=== PATIENT | female | born 1960 | race Caucasian/White ===

== ENCOUNTER 2020-03-03 12:26 | Outpatient (CLI) | payer OTHER, SELFPAY ==
--- NOTE | ~2020-03-03 | XR_ITS ---
XR shoulder RT min 2V DATE: 03/03/2020 12:55 INDICATION: Right shoulder pain. No injury. TECHNIQUE: 4 views COMPARISON: None FINDINGS: No fracture or dislocation, periosteal reaction or bone destruction or abnormal soft tissue calcification. There is mild to moderate osteopenia. IMPRESSION: Mild to moderate osteopenia No fracture or dislocation or abnormal right shoulder soft tissue calcification Reviewed, dictated and finalized at location A.
== END 2020-03-03 12:27 | disposition home or self-care (01) ==
LOC: ANHIMG 12:35
PROVIDERS: PCP Family Medicine; Visit Provider Family Medicine
DX: M25.511 Pain in right shoulder (principal); M85.811 Other specified disorders of bone density and structure, right shoulder
CPT/HCPCS: 73030

== ENCOUNTER 2020-03-15 07:57 | Outpatient (CLI) | payer OTHER, SELFPAY ==
--- NOTE | ~2020-03-15 | DEXA_ITS ---
Bone Density Report Name: Carolee Du Age: 59 Sex: Female Ethnicity: White Date of : 1960 Indication: postmenopausal; height loss; hysterectomy; Referring Provider: MELINDA DENTON Study: Bone densitometry was performed. Exam Date: March 15, 2020 Accession number: [id number] Bone Density: Region BMD T-score Z-score Classification AP Spine (L1-L4) 0.792 -2.3 -0.8 Osteopenia Femoral Neck (Left) 0.693 -1.4 0.0 Osteopenia Total Hip (Left) 0.759 -1.5 -0.5 Osteopenia Total Hip Bilateral Avg 0.762 -1.5 -0.5 Osteopenia Femoral Neck (Right) 0.638 -1.9 -0.5 Osteopenia Total Hip (Right) 0.764 -1.5 -0.4 Osteopenia World Health Organization criteria for BMD impression classify patients as: Normal (T-score at or above -1.0), Osteopenia (T-score between -1.0 and -2.5), or Osteoporosis (T-score at or below -2.5). 10-year Fracture Risk(1): Major Osteoporotic Fracture 9.0% Hip Fracture 1.8% Reported Risk Factors: [place] (), Neck BMD=0.638, BMI=21.9, smoking (1) FRAX(R) Version 3.08. Fracture probability calculated for an untreated patient. Fracture probability may be lower if the patient has received treatment. Clinical Information Provided by Patient: Smokes Has used the following medications: Vitamin D, Calcium Has the following medical conditions: Hysterectomy Patient maximum height was 68.5 Menopause Age: 43 Onset of menses at age 12 Number of children 2 Impression: The patient has low bone mass, based on the Total Spine T-score. The patient has an estimated ten-year risk of hip fracture of 1.8% and an estimated ten-year risk of major fracture of 9%, based on the WHO FRAX algorithm. The patient has risk factors, including: smoking. Discussion: BONE DENSITY IS LOW AT ONE OR MORE SKELETAL SITES. This patient's lowest T-score is low at one or more skeletal sites. It meets the World Health Organization's (WHO) criteria for ?low bone mass? (T-score between -1.0 and -2.5). The patient's 10-year risk of fracture as calculated by FRAX is less than the threshold where pharmacological therapy is recommended by the National Osteoporosis Foundation (NOF). However, all treatment decisions require clinical judgment and consideration of individual patient factors, including patient preferences, comorbidities, previous drug use, risk factors not captured in the FRAX model (e.g., frailty, falls, vitamin D deficiency, increased bone turnover, interval significant decline in bone density) and possible under or overestimation of fracture risk by FRAX. The patient should follow a healthful lifestyle (good nutrition with adequate calcium and vitamin D, and appropriate weight-bearing exercise). Follow-Up: Consider repeating this study in 2 to 3 years to reassess this patient's status, or sooner if there is some new
== END 2020-03-15 07:58 | disposition home or self-care (01) ==
LOC: ANHIMG 07:58
PROVIDERS: PCP Family Medicine; Visit Provider Family Medicine
DX: M85.89 Other specified disorders of bone density and structure, multiple sites (principal)
CPT/HCPCS: 77080

== ENCOUNTER → 2021-01-09 14:07 | Outpatient (CLI) | payer OTHER, SELFPAY ==
--- NOTE | ~2021-01-09 | MM_ITS ---
EXAMINATION: MM screening [facility] BI w celia HISTORY: Screening mammogram TECHNIQUE: Craniocaudal and mediolateral oblique 3-D tomosynthesis images were obtained and synthetic 2-D images were generated. CAD analysis was submitted and interpreted. COMPARISON: 09/19/2014, 09/06/2009 BREAST PARENCHYMAL COMPOSITION: The breasts are extremely dense, which lowers the sensitivity of mamm ography. FINDINGS: There is no evidence of suspicious mass, calcification, or architectural distortion to sugg est malignancy in either breast. There has been no suspicious interval change. IMPRESSION: 1. No mammographic evidence of malignancy. 2. Recommend routine screening mammography in one year. BI-RADS Category 1: Negative Reviewed, dictated and finalized at location A.
== END ==
PROVIDERS: Visit Provider Advanced Practice Midwife
DX: Z12.31 Encounter for screening mammogram for malignant neoplasm of breast (principal)
CPT/HCPCS: 77063; 77067

== ENCOUNTER → 2022-02-22 14:48 | Outpatient (CLI) | payer BC, SELFPAY ==
--- NOTE | ~2022-02-22 | MM_ITS ---
EXAMINATION: MM screening [facility] BI w celia HISTORY: Screening TECHNIQUE: Craniocaudal and mediolateral oblique 3-D tomosynthesis images were obtained and synthetic 2-D images were generated. CAD analysis was submitted and interpreted. COMPARISON: Comparison to multiple prior studies sequentially, with oldest reviewed study dated 01/09. BREAST PARENCHYMAL COMPOSITION: The breasts are extremely dense, which lowers the sensitivity of mamm ography FINDINGS: There is a developing asymmetry lateral to the nipple on the right cc view. There are developing asym metries in the upper outer quadrant of the left breast. There are stable benign-appearing breast calc ifications. IMPRESSION: 1. Developing bilateral breast asymmetries. 2. Additional mammographic views and possible breast ultrasound are recommended. BI-RADS Category 0: Incomplete: Needs additional imaging evaluation. Reviewed, dictated and finalized at location A. IMPRESSION: 1. Developing bilateral breast asymmetries. 2. Additional mammographic views and possible breast ultrasound are recommended . BI-RADS Category 0: Incomplete: Needs additional imaging evaluation.
== END ==
PROVIDERS: PCP Student in an Organized Health Care Education/Training Program; Visit Provider Student in an Organized Health Care Education/Training Program
DX: Z12.31 Encounter for screening mammogram for malignant neoplasm of breast (principal); R92.8 Other abnormal and inconclusive findings on diagnostic imaging of breast
CPT/HCPCS: 77063; 77067

== ENCOUNTER → 2022-03-25 08:05 | Outpatient (CLI) | payer BC, SELFPAY ==
--- NOTE | ~2022-03-25 | MMUS_ITS ---
EXAMINATION: MM diagnostic [facility] BI w celia, US breast BI complete HISTORY: Follow-up breast asymmetries TECHNIQUE: Additional 3-D tomosynthesis images of the breasts were performed and synthetic 2-D images were generated. CAD analysis was submitted and interpreted. High resolution complete bilateral breas t ultrasound was performed. COMPARISON: 09/19/2014 BREAST PARENCHYMAL COMPOSITION: The breasts are extremely dense, which lowers the sensitivity of mamm ography FINDINGS: MAMMOGRAPHIC FINDINGS: There are no suspicious masses, calcifications or architectural distortion in either breast to sugges t malignancy. ULTRASOUND: Complete bilateral US of all 4 quadrants of the breasts and retroareolar region was reviewed. Right breast: At 9:00, 6 cm from the nipple there is an 8 mm lymph node. At 10:00, 4 cm from the nipp le there is an oval hypoechoic mass measuring 6 x 4 x 8 mm without posterior shadowing or internal va scularity. Parallel orientation. Left breast: At 2:00, 4 cm from the nipple there is a 4 mm cyst. No suspicious masses in the left jennifer ast to suggest malignancy. IMPRESSION: 1. Probable benign right breast mass at 10:00, 4 cm from the nipple. No evidence for malignancy in th e left breast. 2. Recommend 6 month follow-up limited right breast ultrasound BI-RADS category 3, probably benign findings. Reviewed, dictated and finalized at location A. IMPRESSION: 1. Probable benign right breast mass at 10:00, 4 cm from the nipple. No evidenc e for malignancy in the left breast. 2. Recommend 6 month follow-up limited right breast ultrasound BI-RADS category 3, probably benign findings.
== END ==
PROVIDERS: PCP Student in an Organized Health Care Education/Training Program; Visit Provider Student in an Organized Health Care Education/Training Program
DX: R92.8 Other abnormal and inconclusive findings on diagnostic imaging of breast (principal); N64.89 Other specified disorders of breast; N60.02 Solitary cyst of left breast; N63.14 Unspecified lump in the right breast, lower inner quadrant
CPT/HCPCS: 76641; 77062; 77066; G0279

== ENCOUNTER → 2022-07-24 10:16 | Outpatient (CLI) | payer BC, SELFPAY ==
--- NOTE | ~2022-07-24 | CT_ITS ---
EXAMINATION: CT lung screening DATE: 07/24/2022 11:18 INDICATION: Nicotine dependence, cigarettes, uncomplicated TECHNIQUE: Computed tomography (CT) of the chest was performed without intravenous contrast. Addition al 3D reconstructions utilizing coronal maximum intensity projection (MIP) were performed. Automated exposure control and iterative reconstruction technique were employed. The dose-length product was 62 .23 mGy-cm. COMPARISON: None FINDINGS: Mild biapical pleural-parenchymal scarring with minimal calcific lesion on the right. Couple tiny lawson cified nodules in the left lower lobe consistent with old granulomatous disease. Additional mild line ar discoid atelectasis at the anterior segment of the right upper lobe. No suspicious pulmonary nodul es, pneumonia, pulmonary edema or pleural effusion. Heart size is normal. No pericardial effusion. Th oracic aorta is normal in caliber. No pathologically enlarged thoracic lymphadenopathy. Small sliding -type hiatal hernia. Visualized upper abdomen is unremarkable. Mild thoracic spondylosis. IMPRESSION: 1. Lung-RADS category 1: Negative. Continue annual screening with noncontrast low-dose chest CT in 12 months. 2. Small sliding-type hiatal hernia. Reviewed, dictated and finalized at location B. IMPRESSION: 1. Lung-RADS category 1: Negative. Continue annual screening with noncontrast l ow-dose chest CT in 12 months. 2. Small sliding-type hiatal hernia.
--- NOTE | ~2022-07-24 | US_ITS ---
US breast RT limited 07/24/2022 11:17 Indication: Follow-up right breast mass at 10:00. Procedure: High-resolution Limited ultrasound of the right breast Comparison: Ultrasound dated 03/25/2022 Findings: At 10:00, 4 cm from the nipple there is an oval circumscribed hypoechoic mass measuring 7 x 4 x 7 mm. There is parallel orientation, no posterior features and no internal vascularity, unchange d from prior examination. Impression: 1: Stable benign-appearing right breast mass, located at 10:00, 4 cm from the nipple. BI-RADS CATEGORY 3-PROBABLY BENIGN FINDING RECOMMENDATION: Six-month follow-up diagnostic bilateral mammogram and Limited left breast ultrasound Reviewed, dictated and finalized at location A. Impression: 1: Stable benign-appearing right breast mass, located at 10:00, 4 cm from the n ipple. BI-RADS CATEGORY 3-PROBABLY BENIGN FINDING RECOMMENDATION: Six-month follow-up diagnostic bilateral mammogram and Limited left breast ultrasound
== END ==
PROVIDERS: PCP Student in an Organized Health Care Education/Training Program; Visit Provider Student in an Organized Health Care Education/Training Program
DX: Z12.2 Encounter for screening for malignant neoplasm of respiratory organs (principal); F17.210 Nicotine dependence, cigarettes, uncomplicated; N63.11 Unspecified lump in the right breast, upper outer quadrant; N64.89 Other specified disorders of breast
CPT/HCPCS: 71271; 76642

== ENCOUNTER → 2023-01-22 07:43 | Outpatient (CLI) | payer BC, SELFPAY ==
--- NOTE | ~2023-01-22 | MMUS_ITS ---
EXAMINATION: MM diagnostic [facility] BI w celia, US breast BI complete HISTORY: Six-month follow-up of reported stable benign-appearing 10:00 right breast mass 4 cm from ni pple TECHNIQUE: Full field and spot 3-D tomosynthesis images of both breasts were performed and synthetic 2-D images were generated. CAD analysis was submitted and interpreted. High resolution complete bilat eral breast ultrasound examination including all 4 quadrants and subareolar areas was performed. COMPARISON: 07/24/2022 Limited right breast ultrasound 03/25/2022 diagnostic bilateral mammogram and bilateral complete breast ultrasound 02/22/2022, 01/09/2021 bilateral screening mammogram examinations BREAST PARENCHYMAL COMPOSITION: The breasts are extremely dense, which lowers the sensitivity of mamm ography. FINDINGS: MAMMOGRAPHIC FINDINGS: Occasional bilateral benign breast calcifications. No suspicious mass or architectural distortion, malignant calcification, skin thickening or retractio n or significant new or developing density is detected. ULTRASOUND: Right breast: 9:00 4 cm from nipple: Benign-appearing approximately 6.5 x 4.4 x 7.5 mm lymph node 10:00 4 cm from nipple: Approximately 4 x 6 x 8 mm parallel circumscribed hypoechoic lesion without i nternal vascularity or posterior shadowing, stable since 03/25/2022. Left breast: 3:00 5 cm from nipple: Parallel circumscribed sonolucency measuring approximately 3 x 5 x 4.8 mm, wit h through transmission, likely a small cyst 4:00 2 cm from nipple: Parallel circumscribed 2.4 x 5.3 mm hypoechoic lesion without internal vascula rity or posterior shadowing, benign in appearance IMPRESSION: 1. Benign findings 2. Routine annual mammographic screening is recommended BI-RADS Category 2: Benign finding(s). Reviewed, dictated and finalized at location A. IMPRESSION: 1. Benign findings 2. Routine annual mammographic screening is recommended BI-RADS Category 2: Benign finding(s).
== END ==
PROVIDERS: PCP Student in an Organized Health Care Education/Training Program; Visit Provider Student in an Organized Health Care Education/Training Program
DX: R92.8 Other abnormal and inconclusive findings on diagnostic imaging of breast (principal)
CPT/HCPCS: 76641; 77062; 77066; G0279

== ENCOUNTER → 2023-10-27 09:41 | Outpatient (CLI) | payer BC, SELFPAY ==
--- NOTE | ~2023-10-27 | CT_ITS ---
CT Scan of the Chest without Contrast: Clinical Indication: Lung cancer screening, personal history of nicotine dependence Technique: Contiguous sections were acquired throughout the chest without intravenous contrast. Dose reduction technique was used on this scan by utilizing automated exposure control and iterative recon struction technique. The dose-length product (DLP) was 67.14 mGy-cm. COMPARISON: 07/24/2022 Findings: There is no evidence of any significant mediastinal, hilar or axillary lymphadenopathy. The mediastin al soft tissues appear normal. There is no evidence of pleural or pericardial effusion. The lungs are clear. No pulmonary nodules or infiltrates are noted. Images through the upper abdomen reveal no abnormalities. Impression: Lung RADS 1: Negative. 12 month follow-up screening CT advised. Reviewed, dictated and finalized at location . GRADER OPERATOR Impression: Lung RADS 1: Negative. 12 month follow-up screening CT advised.
== END ==
PROVIDERS: PCP Student in an Organized Health Care Education/Training Program; Visit Provider Student in an Organized Health Care Education/Training Program
DX: Z12.2 Encounter for screening for malignant neoplasm of respiratory organs (principal); F17.210 Nicotine dependence, cigarettes, uncomplicated
CPT/HCPCS: 71271

== ENCOUNTER 2023-11-27 00:34 | Day surgery (SDC) | payer BC, SELFPAY ==
[2023-11-04 11:48] VITALS: BMI 24.5
--- NOTE | 2023-11-26 16:47 | PM.HPGS ---
History of Present Illness History of Present Illness Consent: Risks, benefits, and alternatives have been discussed and questions answered. Patient agrees to proceed with procedure. Chief complaint: neoplasm screening Narrative: Carolee Du is a 63 year old female referred for colon cancer screening. Her last colonoscopy was 10 years ago. Review of Systems Review of Systems: All systems reviewed & are unremarkable except as noted in HPI and below PMFSH Social History Social History Smoking packs per day: 0.5 Smoking cigarettes per day: 10.0 Years smoked: 35 Smoking pack-years: 17.50 Smoking status: Former smoker Tobacco type: cigarettes Alcohol intake: current Drinks per week: 5 Alcohol use details: On the weekends Substance use type: does not use Living arrangements: other Additional living arrangements comments: with sp Meds Home Medications and Allergies Home Medications Medication Instructions Recorded Confirmed Type aspirin 81 mg tablet 81 mg PO DAILY 11/04/23 11/27/23 History simvastatin 40 mg tablet 40 mg PO DAILY 11/04/23 11/27/23 History Allergies Allergy/AdvReac Type Severity Reaction Status Date / Time No Known Allergies Allergy Verified 11/27/23 09:46 Exam Const: General: alert Orientation/consciousness: patient oriented x3 Resp: Auscultation: clear to auscultation bilaterally Cardio: Rhythm: regular rhythm GI: GI Palp: Yes Soft to palpation and No Tenderness to palpation present (GI) Neuro: General: patient oriented x3 Assessment and Plan Assessment and plan (1) Colon cancer screening: Code(s): Z12.11 - Encounter for screening for malignant neoplasm of colon Status: Acute Assessment and Plan: Colonoscopy with possible biopsy or polypectomy or cautery or injection of substances.
[2023-11-27 09:47] VITALS: BP 123/75; PULSE 96; RESP 16; TEMP 36.1; O2SAT 100
[2023-11-27] MEDS: LACTATED RINGERS 1,000 ML 150 ML IV CONT (09:49)
--- NOTE | 2023-11-27 10:29 | P.PNAN_ITS ---
Anes - Initial Pre Proc Eval Procedure: Operation Date: 11/27/23 11:00 Proposed Procedures p Screening Colonoscopy - Darvin Medrano MD Date/Time: 11/27/23 10:29 Surgeon: Darvin Medrano MD Pre Op Diagnosis: neoplasm screening Patient Data Age: 63 Gender: F Height: 1.73 m Weight: 71.2 kg Last Vital Signs Temp 96.9 F L 11/27/23 09:47 Pulse 96 11/27/23 09:47 Resp 16 11/27/23 09:47 BP 123/75 11/27/23 09:47 Pulse Ox 100 11/27/23 09:47 O2 Del Method Room Air 11/27/23 09:47 Allergies Allergy/AdvReac Type Severity Reaction Status Date / Time No Known Allergies Allergy Verified 11/27/23 09:46 Home Medications Medication Instructions Recorded Confirmed Type aspirin 81 mg tablet 81 mg PO DAILY 11/04/23 11/27/23 History simvastatin 40 mg tablet 40 mg PO DAILY 11/04/23 11/27/23 History Patient hx anesthesia problems: none Family hx anesthesia problems: none Results Review: All pre-operative results and documents have been reviewed as part of the pre- operative evaluation. [facility] Social History Social History Smoking packs per day: 0.5 Smoking cigarettes per day: 10.0 Years smoked: 35 Smoking pack-years: 17.50 Smoking status: Former smoker Tobacco type: cigarettes Alcohol intake: current Drinks per week: 5 Alcohol use details: On the weekends Substance use type: does not use Living arrangements: other Additional living arrangements comments: with sp Anes - Eval Final PreProcedure Day of Procedure 11/27/23 10:29 Patient weight: normal Heart: regular rate and rhythm Lungs: clear to auscultation Airway: Mallampati scale class II Neurological: alert and oriented Last oral intake: >/= 8 hours ASA classification: II Emergent: no Anesthetic plan: proceed Anesthesia type and monitoring: general GIVS and standard monitoring Results Review: All pre-operative results and documents have been reviewed as part of the pre- operative evaluation. Informed Consent: The patient's anesthetic plan and its attendant risks and benefits were discussed with the patient/family/POA. Questions were solicited and answers provided to the satisfaction of the patient/family/POA.
[2023-11-27 11:11] VITALS: BP 130/63; PULSE 79; RESP 20; O2SAT 97
[2023-11-27 11:21] VITALS: BP 148/65; PULSE 68; RESP 22; O2SAT 98
[2023-11-27 11:31] VITALS: BP 167/64; PULSE 66; RESP 18; O2SAT 98
== END 2023-11-27 11:39 | disposition home or self-care (01) ==
PROVIDERS: PCP Student in an Organized Health Care Education/Training Program; Visit Provider Internal Medicine Gastroenterology
PROC: 0DJD8ZZ Inspection of Lower Intestinal Tract, Via Natural or Artificial Opening Endoscopic (ICD-10-PCS; CPT 45378; principal; 2023-11-27 11:00)
DX: Z12.11 Encounter for screening for malignant neoplasm of colon (principal); K62.1 Rectal polyp; K64.8 Other hemorrhoids; K57.30 Diverticulosis of large intestine without perforation or abscess without bleeding; Z79.82 Long term (current) use of aspirin; Z87.891 Personal history of nicotine dependence
CPT/HCPCS: 45380; 88305; J2704; J7120

== ENCOUNTER 2024-03-15 12:53 | Outpatient (CLI) | payer BC, SELFPAY ==
--- NOTE | ~2024-03-15 | DEXA_ITS ---
Bone Density Report Name: SHAUN SALES Age: 63 Sex: Female Ethnicity: White Date of : 1960 Indication: osteopenia; height loss; hysterectomy; Referring Provider: Nisha, Baldev Study: Bone densitometry was performed. Exam Date: March 15, 2024 Accession number: [id number] Bone Density: Region BMD T-score Z-score Classification AP Spine (L1-L4) 0.836 -1.9 -0.1 Osteopenia Femoral Neck (Left) 0.677 -1.5 0.0 Osteopenia Total Hip (Left) 0.756 -1.5 -0.3 Osteopenia Femoral Neck (Right) 0.600 -2.2 -0.7 Osteopenia Total Hip (Right) 0.767 -1.4 -0.2 Osteopenia Total Hip Mean 0.762 -1.5 -0.3 Osteopenia World Health Organization criteria for BMD impression classify patients as: Normal (T-score at or above -1.0), Osteopenia (T-score between -1.0 and -2.5), or Osteoporosis (T-score at or below -2.5). 10-year Fracture Risk(1): Major Osteoporotic Fracture 12% Hip Fracture 2.0% Reported Risk Factors: [place] (), Neck BMD=0.600, BMI=25.1 (1) FRAX(R) Version 3.08. Fracture probability calculated for an untreated patient. Fracture probability may be lower if the patient has received treatment. Previous Exams: Region Exam Age BMD T-score BMD Change BMD Change Date g/cm2 vs Baseline vs Previous AP Spine(L1-L4) 03/15/2024 63 0.836 -1.9 -0.043* -0.043* 09/19/2014 54 0.880 -1.5 Total Hip(Left) 03/15/2024 63 0.756 -1.5 -0.037* -0.037* 09/19/2014 54 0.792 -1.2 Total Hip(Right) 03/15/2024 63 0.767 -1.4 -0.039* -0.039* 09/19/2014 54 0.806 -1.1 *Denotes significance at 95% confidence level, LSC for AP Spine = 0.022 g/cm2, LSC for Total Hip = 0.027 g/cm2 Clinical Information Provided by Patient: Has used the following medications: Vitamin D, Calcium, MTV Has the following medical conditions: Hysterectomy Patient maximum height was 69 Menopause Age: 43 No regular weight bearing exercise Drinks caffeinated beverages Onset of menses at age 10 Number of children 2 Impression: The patient has low bone mass, based on the Right Femoral Neck T-score. The patient has an estimated ten-year risk of hip fracture of 2% and an estimated ten-year risk of major fracture of 12%, based on the WHO FRAX algorithm. The BMD for the AP Spine(L1-L4) decreased, changing by -0.043 since the last DXA exam. The BMD for the Total Hip(Left) decreased, changing by -0.037 since the last DXA exam. The BMD for the Total Hip(Right) decreased, changing by -0.039 since the last DXA exam. Dis
== END 2024-03-15 12:54 ==
LOC: MICIMG 12:56
PROVIDERS: PCP Student in an Organized Health Care Education/Training Program; Visit Provider Student in an Organized Health Care Education/Training Program
DX: M85.89 Other specified disorders of bone density and structure, multiple sites (principal); Z78.0 Asymptomatic menopausal state; Z12.31 Encounter for screening mammogram for malignant neoplasm of breast
CPT/HCPCS: 77080

== ENCOUNTER 2025-01-14 08:13 | Outpatient (CLI) | payer BC, SELFPAY ==
--- NOTE | ~2025-01-14 | CT_ITS ---
CT Scan of the Chest without Contrast: Clinical Indication: Lung cancer screening, nicotine dependence Technique: Contiguous sections were acquired throughout the chest without intravenous contrast. Dose reduction technique was used on this scan by utilizing automated exposure control and iterative recon struction technique. The dose-length product (DLP) was 62.63 mGy-cm. COMPARISON: 10/27/2023 Findings: There is no evidence of any significant mediastinal, hilar or axillary lymphadenopathy. Centimeter me asures 4 cm in diameter, borderline enlarged. There is no evidence of pleural or pericardial effusion. The lungs are clear. No pulmonary nodules or infiltrates are noted. Images through the upper abdomen reveal no abnormalities. Impression: Lung RADS 1: Negative. 12 month follow-up scanning CT advised. Reviewed, dictated and finalized at location . Impression: Lung RADS 1: Negative. 12 month follow-up scanning CT advised.
== END 2025-01-14 08:14 | disposition home or self-care (01) ==
LOC: MICIMG 08:14
PROVIDERS: PCP Student in an Organized Health Care Education/Training Program; Visit Provider Student in an Organized Health Care Education/Training Program
DX: Z12.2 Encounter for screening for malignant neoplasm of respiratory organs (principal); Z87.891 Personal history of nicotine dependence
CPT/HCPCS: 71271

== ENCOUNTER 2025-06-29 16:19 | Outpatient (CLI) | payer BC, SELFPAY ==
--- NOTE | ~2025-06-29 | MM_ITS ---
EXAMINATION: MM screening [facility] BI w celia HISTORY: Screening TECHNIQUE: Craniocaudal and mediolateral oblique 3-D tomosynthesis images were obtained and synthetic 2-D images were generated. CAD analysis was submitted and interpreted. COMPARISON: 01/22/2023 BREAST PARENCHYMAL COMPOSITION: The breasts are extremely dense, which lowers the sensitivity of mammography. FINDINGS: There is no evidence of suspicious mass, calcification, or architectural distortion to suggest malignancy. There has been no suspicious interval change. IMPRESSION: 1. No mammographic evidence of malignancy. Recommend routine screening mammography in one year. BI-RADS Category 2: Benign finding(s) Reviewed, dictated and finalized at location Q. IMPRESSION: 1. No mammographic evidence of malignancy. Recommend routine screening mammogra phy in one year. BI-RADS Category 2: Benign finding(s)
--- OUTSIDE RECORDS SUMMARY | 2025-06-29 16:37 | XMS_ITS | Clinical Summary ---
Author Organization [facility] [employer] Address [address] [place] [id number] Care Team Providers Care Engineering Designer Name Role Phone Unavailable Primary Care Provider Unavailabl e Immunizations Immunization Administration Dates Next Due INFLUENZA VACCINE QUADRIVALE NT 6 MOS UP PF IM 07/16/2022,07/18/2021,08/03/2020 INFLUENZA VACCINE QUADRIVALE NT ADJ 63 YR UP PF IM 07/29/2023 Social History Tobacco Use Types Packs/Day Years Used Date Smoking Tobacco: Never Assessed Comments Unknown Sex and Gender Information Value Date Recorded Sex Assigned at Not on file Legal Sex Female 6:08 PM CDT Gender Identity Not on file Sexual Orientation Not on file Plan of Treatment Health Maintenance Due Date Last Done Comments COLORECTAL SCREENING 2003 Colorectal Cancer Screening 2003 FIT-DNA Q 3 years 2003 FIT/FOBT Q 1 year 2003 Flex Sig/CT Colonography Q 5 years 2003 PNEUMOCOCCAL VACCINE 50+ YEA RS (1 of 1 - PCV) 2008 ZOSTER VACCINE (1 of 2) 2008 BREAST CANCER SCREENING 03/25/2023 03/25/2022 OSTEOPOROSIS SCREENING 03/15/2025 03/15/2020 INFLUENZA VACCINE (#1) 2025 3, 07/16/2022, 07/18/2021, Additional history exists DTAP/TDAP/TD VACCINES (2 - T d or Tdap) 09/23/2027 09/23/2017 RSV VACCINE (60+ or ) (1 - 1-dose 75+ series) 2033 Insurance [facility] BLUE ACCESS CHOICE [employer] CHOICE
--- OUTSIDE RECORDS SUMMARY | 2025-06-29 16:37 | XMS_ITS | Clinical Summary ---
Author Organization [facility] Care Team Providers Care Commercial Leasing Agent Name Role Phone Unavailable Primary Care Provider Unavailabl e Social History Tobacco Use Types Packs/Day Years Used Date Smoking Tobacco: Never Assessed Comments Unknown Sex and Gender Information Value Date Recorded Sex Assigned at Not on file Legal Sex Female 8:19 AM CDT Gender Identity Not on file Sexual Orientation Not on file Plan of Treatment Health Maintenance Due Date Last Done Comments Hepatitis C Virus (HCV) Screening 1960 Cologuard 2003 Colonoscopy 2003 Colorectal Cancer Screening 2003 Immunochemical Fecal Occult Blood 2003 Pneumococcal Immunization (5 0+ years) (1 of 1 - PCV) 2008 Zoster Immunization (1 of 2) 2008 SARS-COV-2 Immunization ( season) 2024 01/16/2021, 12/24/2020 Influenza Immunization (#1) 2025 Respiratory Syncytial Virus (RSV) Immunization (Adult) (1 - 1-dose 75+ series) 2033 DTaP/Tdap/Td Immunization Discontinued 09/23/2017 TdaP Immunization Completed 09/23/2017 Hepatitis B Immunization Aged Out No longer eligible based on patient's age to complete this topic Human Papillomavirus (HPV) Immunization Aged Out No longer eligible based on patient's age to complete this topic Meningococcal Immunization (ACWY) Aged Out No longer eligible based on patient's age to complete this topic Rotavirus Immunization Aged Out No lo nger eligible based on patient's age to complete this topic
== END 2025-06-29 16:20 | disposition home or self-care (01) ==
LOC: ANHFOHIMG 16:23
PROVIDERS: PCP Student in an Organized Health Care Education/Training Program; Visit Provider Student in an Organized Health Care Education/Training Program
DX: Z12.31 Encounter for screening mammogram for malignant neoplasm of breast (principal)
CPT/HCPCS: 77063; 77067